=== PATIENT | female | born 1955 | race Caucasian/White ===

== ENCOUNTER 2024-10-19 14:28 | Outpatient (CLI) | payer MEDICARE, SELFPAY ==
[2024-10-19 15:00] LABS: Hematocrit 40.5 % (37.0-47.0); Hemoglobin 13.6 g/dL (12.0-15.0)
--- OUTSIDE RECORDS SUMMARY | 2024-10-19 17:03 | XMS_ITS | Encounter Summary ---
Author Organization [facility] Address [facility] [place] [address] Care Team Providers Care Wood Milling Machine Tender Name Role Phone Millicent Obregon [facility] Primary Care Provider + Encounter Details Date Type Department Care Team (Latest Contact Info) Description 10/19/2024 Travel Social History Tobacco Use Types Packs/Day Years Used Date Smoking Tobacco: Never Smokeless Tobacco: Never Alcohol Use Standard Drinks/Week Comments Not Currently 5 (1 standard drink = 0.6 oz pur e alcohol) social PHQ-2 Answer Date Recorded Patient Health Questionnaire-2 Score 0 09/24/2024 Comments No Sex and Gender Information Value Date Recorded Sex Assigned at Female 09/24/2024 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 [address] [place] [address] Millicent Obregon, [facility] [address], [address] [place] [address] documented as of this encounter Visit Diagnoses Not on filedocumented in this encounter Additional Health Concerns Assessment Noted Time PHQ-9 Depression Total Score: 0 07/27/20 21 3:37 PM TRUCK DRIVER SALESPERSON documented as of this encounter Care Teams Wood Milling Machine Tender Relationship Specialty Start Date End Date Millicent Obregon, [facility]- [address], [address] [place] [address] PCP - General NURSE PRACTITIONER 04/14/19 documented as of this encounter
--- OUTSIDE RECORDS SUMMARY | 2024-10-19 17:03 | XMS_ITS | Encounter Summary ---
Author Organization [facility] Address [facility] [place] [address] Care Team Providers Care Supervisor Travel Trailer Name Role Phone Millicent Obregon [facility] Primary Care Provider + Encounter Details Date Type Department Care Team (Late Contact Info) Description 10/19/2024 9:40 AM RECYCLING OR RUBBISH COLLECTOR Hospital Encounter [facility] [address] [place] [address] [facility] [address], [address] [place] [address] Arrived Social History Tobacco Use Types Packs/Day Years Used Date Smoking Tobacco: Never Smokeless Tobacco: Never Alcohol Use Standard Drinks/Week Comments Not Currently 5 (1 standard drink = 0.6 oz pur e alcohol) social PHQ-2 Answer Date Recorded Patient Health Questionnaire-2 Score 0 09/24/2024 Comments No Sex and Gender Information Value Date Recorded Sex Assigned at Female 09/24/2024 11:23 AM RECYCLING OR RUBBISH COLLECTOR Legal Sex Female 2:33 PM CDT Gender Identity Not on file Sexual Orientation Not on file documented as of this encounter Plan of Treatment Upcoming Encounters Date Type Department Care Team (Late Contact Info) Description 11/03/2024 10:00 AM CDT Office Visit [facility] [address] [place] [id number] Mindi Millicent Méndez, [facility] [address], [address] [place] [address] documented as of this encounter Procedures Procedure Name Priority Date/Time Associated Diagnosis Comments COMPREHENSIVE METABOLIC PANEL Routine 10/19/2024 9:40 AM RECYCLING OR RUBBISH COLLECTOR Mixed hyperlipidemia LIPID PANEL Routine 10/19/2024 9:40 AM RECYCLING OR RUBBISH COLLECTOR Mixed hyperlipidemia documented in this encounter Results * LIPID PANEL (10/19/2024 9:40 AM RECYCLING OR RUBBISH COLLECTOR) CHOLESTEROL 118 <200 MG/DL 10/19/2024 11:30 AM [facility] TRIGLYCERIDES 36 <150 MG/DL 10/19/2024 11:30 AM [facility] HDL 52 >40.0 MG/DL 10/19/2024 11:30 AM [facility] LDL (CALCULATED) 59 <100 MG/DL 10/19/19 11:30 AM [facility] NON HDL CHOLESTEROL 66 <130 MG/DL 10/19 11:30 AM [facility] Comment: NOTE: WHEN THE TRIGLYCERIDES ARE >200 mg/dL, NON HDL C IS A SECONDARY TARGET OF THERAPY, WITH A GOAL 30 mg/dL HIGHER THAN THE IDENTIFIED LDL C GOAL. CHOL/HDL RATIO 2.3 0.0 - 4.5 10/19/2024 11:30 AM [facility] VLDL CALCULATION 7 5 - 55 MG/DL 10/19/2024 11:30 AM [facility] LIPID INTERPRETATION 10/19/2024 11:30 AM [facility] Comment: [facility] CONCENSUS REPORT RECOMMENDATIONS: ADULT CHILD LOW RISK: CHOLESTEROL <200 <170 TRIGLYCERIDE <150 --- HDL >=60 --- LDL <100 <110 BORDERLINE: CHOLESTEROL 200-239 170-199 TRIGLYCERIDE 150-199 --- HDL 40-59 --- LDL 100-159 110-129 HIGH RISK: CHOLESTEROL >=240 >=200 TRIGLYCERIDE >=200 --- HDL <40 --- LDL >=160 >=130 10/19/2024 9:40 AM RECYCLING OR RUBBISH COLLECTOR Millicent Méndez Mindi [facility] Final Re sult [facility] [address] [place] [address], [place] [phone] * (ABNORMAL) COMPREHENSIVE METABOLIC PANEL (10/19/2024 9:40 AM RECYCLING OR RUBBISH COLLECTOR) GLUCOSE 95 70 - 99 MG/DL 10/19/2024 11:30 AM [facility] BUN 19(H) 7 - 18 MG/DL 10/19/2024 11:30 AM [facility] CREATININE S/P/B 0.80 0.55 - 1.02 MG/DL 10/19/2024 11:30 AM [facility] SODIUM S/P/B 141 136 - 145 MMOL/L 10/19/2024 11:30 AM [facility] POTASSIUM S/P/B 4.1 3.5 - 5.1 MMOL/L 10/19/2024 11:30 AM [facility] CHLORIDE S/P/B 105 100 - 108 MMOL/L 10/19/2024 11:30 AM [facility] CO2 26.3 21 - 32 MMOL/L 10/19/2024 11:30 AM [facility] CALCIUM S/P/B 9.1 8.5 - 10.1 MG/DL 10/19/2024 11:30 AM [facility] BILIRUBIN TOTAL S/P/B 0.9 0.2 - 1.2 MG/DL 10/19/2024 11:30 AM [facility] Comment: THIS ASSAY IS NOT RECOMMENDED FOR PATIENTS UNDERGOING TREATMENT WITH ELTROMBOPAG DUE TO THE POTENTIAL FOR FALSELY ELEVATED RESULTS. TOTAL PROTEIN S/P/B 7.2 6.4 - 8.2 G/DL 10/19/2024 11:30 AM [facility] ALBUMIN S/P/B 3.6 3.4 - 5.0 G/DL 10/19/2024 11:30 AM [facility] AST 19 15 - 37 U/L 10/19/2024 11:30 AM [facility] ALT 26 14 - 55 U/L 10/19/2024 11:30 AM [facility] ALKALINE PHOSPHATASE S/P/B 76 50 - 136 U/L 10/19/2024 11:30 AM [facility] ANION GAP 9.7 5 - 15 MMOL/L 10/19/2024 11:30 AM [facility] BUN CREATININE RATIO 23.8 6 - 26 10/19/2024 11:30 AM [facility] A/G RATIO 1.0 1.0 - 2.0 RATIO 10/19/2024 11:30 AM [facility] GFR ESTIMATE 80(L) >90 ML/MIN/1.7 3 M2 10/19/2024 11:30 AM [facility] Comment: NOTE: eGFR is not calculated for patients <18 years of age. This is an estimated GFR calculation using the new CKD EPI creatinine equation without race and so does not require a correction factor for race. This estimated GFR should not be used for calculating drug doses. 10/19/2024 9:40 AM RECYCLING OR RUBBISH COLLECTOR us Millicent Obregon [facility] Final Re sult [facility] [address] [place] [address], documented in this encounter Visit Diagnoses Diagnosis Mixed hyperlipidemia documented in this encounter Additional Health Concerns Assessment Noted Time PHQ-9 Depression Total Score: 0 07/27/20 21 3:37 PM RECYCLING OR RUBBISH COLLECTOR documented as of this encounter Care Teams Supervisor Travel Trailer Relationship Specialty Start Date End Date Millicent Obregon, [facility] [address], [address] [place] [address] PCP - General NURSE PRACTITIONER 04/14/19 documented as of this encounter
--- OUTSIDE RECORDS SUMMARY | 2024-10-19 17:03 | XMS_ITS | Clinical Summary ---
Author Organization [facility] Address [address] [place] [address] Care Team Providers Care Sky Line Yarder Name Role Phone MindiMillicent hernández Honey [facility] Primary Care Provider + Allergies Active Allergy Reactions Criticality Noted Date Comments Sulfa Antibiotics Itching 04/14/2019 Medications [facility]-3 Fatty Acids (OMEGA-3 PLUS) 1000 MG Cap Take by mouth daily. Active Multiple Vitamins-Minerals (MULTIVITAMIN ADULT OR) Take by mouth daily. Active Multiple Vitamins-Minerals (VISION VITAMINS OR) Take by mouth daily. Active cetirizine 10 MG tabletIndications :Allergic rhinitis due to pollen, unspecified seasonality Take 0.5 tablets (5 mg total) by mouth daily as needed. 45 tablet 1 10/16/19 22 Active Cholecalciferol (VITAMIN D) 125 MCG (5000 UT) Cap 11/25/19 24 Active lisinopril (PRINIVIL) 30 MG tabletIndications :Essential hypertension Take 1 tablet (30 mg total) by mouth daily. 90 tablet 1 05/08/20 24 Active levothyroxine (SYNTHROID) 50 MCG tabletIndications :Hypothyroidism, unspecified type Take 1 tablet (50 mcg total) by mouth daily. 90 tablet 2 05/08/20 24 Active atorvastatin (LIPITOR) 20 MG tabletIndications :Mixed hyperlipidemia Take 1 tablet (20 mg total) by mouth nightly at bedtime. 90 tablet 1 05/08/20 24 Active triamcinolone (KENALOG) 0.1 % creamIndications: Cheilitis Apply topically 2 (two) times daily. 80 g 05/08/20 24 Active meloxicam (MOBIC) 15 MG tabletIndications :Chronic pain of right knee TAKE 1 TABLET (15 MG TOTAL) BY MOUTH DAILY. 90 tablet 1 10/05/19 25 Active meloxicam (MOBIC) 15 MG tabletIndications :Chronic pain of right knee Take 1 tablet (15 mg total) by mouth daily. 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 The only thing proven to slow the progression of osteoarthritis is weight loss. Every pound lost relieves 4 to 6 pounds of stress across the knee. We discussed unloading braces. We discussed TENS units. Nonsteroidal anti-inflammatories as well as Tylenol and pain medication and their side effects. We discussed steroid versus Visco supplement injection. Dr Agustin discussed eventual total knee arthroplasty. She will increase meloxicam to 15 mg qd, order was sent in to the pharmacy. We will pre approve for synvisc. She will continue the home exercise program. Will consider steroid injection. Degenerative tear of meniscus, right 02/10/2021 Chronic pain of right knee 11/15/2020 Encounters Date Type Department Care Team Description 10/19/2024 9:40 AM [facility] Hospital Encounter [facility] Laboratory [address] [place] [address] Millicent Obregon FNP-BC Arrived 10/19/2024 Travel 10/06/2024 Scan [facility] Scanned, [facility] 10/05/[address] [phone] Millicent Obregon FNP-BC Information 09/28/2024 Telephone [facility] [address] [place] [phone] Millicent Obregon, [facility] Results 09/24/2024 3:59 PM [facility] - 09/24/2024 11:59 PM [facility] Hospital Encounter [address] [address] Millicent Obregon, [facility] Discharge Disposition: Home or Self Care (Routine Discharge) 09/24/2024 12:24 PM [facility] - 09/24/2024 3:58 PM [facility] Hospital Encounter [facility] Ultrasound [address] [place] [phone] Millicent Obregon, [facility]BC Discharge Disposition: Home or Self Care (Routine Discharge) 09/24/2024 11:40 AM [facility] Office Visit [address] [phone] Millicent Obregon, [facility] UTI (Possibly came back ) 09/24/[address] [address] Millicent Obregon FNP-BC Results 09/24/2024 Travel 09/10/[address] [address] Millicent Obregon, [facility] Results 09/07/2024 10:47 AM [facility] - 09/07/2024 11:59 PM [facility] Hospital Encounter [address] [address] Millicent Obregon, [facility] Discharge Disposition: Home or Self Care (Routine Discharge) 09/07/2024 9:40 AM [facility] Office Visit [address] [phone] Millicent Obregon, [facility] Bladder Problem (Leakage ) 09/07/2024 Travel 08/06/2024 11:07 AM [facility] - 08/06/2024 11:59 PM [facility] Hospital Encounter [facility] Mammography [address] [place] [address] Millicent Obregon FNP- Discharge Disposition: Home or Self Care (Routine Discharge) 08/06/2024 Telephone [facility] [address] [place] [address] Millicent Obregon FNP-HOWIE Results 08/06/2024 Travel from Last 3 Months Immunizations Name Administration Dates Next Due Afluria 36 MONTHS+ (Prefilled Syringe IIV4) 05/27 Arexvy Respiratory Syncytial Virus (RSV, adjuvanted) 0.5 mL, PF 09/22/2023 Fluzone 6 Months+ Quad (0.5 mL Prefilled Syringe) 05/19/2020 Fluzone High Dose (IIV, trivalent, 0.5mL) 2023 Fluzone High Dose - >Age 65 (Prefilled Syringe) 05/17/2023,05/27/2022,05/11/2021 Hepatitis B 10/20/2001,05/22/2001,04/10/2001 MODERNA COVID-19 BIVALENT (1 2+), MRNA, LNP-S, PF 01/28/2023,05/26/2022 MODERNA COVID-19 (12+) MRNA, LNP-S, PF, 100 MCG/ 0.5 ML DOSE 06/19/2021,11/07/2020,10/07/2020 MODERNA COVID-19 (USED CAR [employer]), MRNA, LNP-S, PF, 50 MCG/ 0.25 ML DOSE 12/23/2021 Pneumococcal (Pneumovax 23) 04/09/2022 Pneumococcal (Prevnar 13) 04/05/2021 Shingrix 12/10/2022,09/15/2022 Family History Medical History Relation Comments Diabetes Father Emphysema Father Breast Cancer Mother Cancer Mother breast Diabetes Mother Heart Attack Mother Thyroid Mother Diabetes Sister Relation Status Comments Father Mother Sister Social History Tobacco Use Types Packs/Day Years Used Date Smoking Tobacco: Never Smokeless Tobacco: Never Tobacco Cessation:Counseling Given: No Alcohol Use Standard Drinks/Week Comments Not Currently 5 (1 standard drink = 0.6 oz pur e alcohol) social PHQ-2 Answer Date Recorded Patient Health Questionnaire-2 Score 0 09/24/2024 Comments No Sex and Gender Information Value Date Recorded Sex Assigned at Female 09/24/2024 11:23 AM [facility] Legal Sex Female 2:33 PM CDT Gender Identity Not on file Sexual Orientation Not on file Last Filed Vital Signs Vital Sign Reading Time Taken Comments Blood Pressure 143/87 09/24/2024 11:55 AM [facility] Pulse 63 09/24/2024 11:32 AM [facility] Temperature 36.6 C (97.8 F) 09/24/2024 11:32 AM [facility] Respiratory Rate 18 09/24/2024 11:32 AM [facility] Oxygen Saturation 96% 09/24/2024 11:32 AM [facility] Inhaled Oxygen Concentration - - Weight 70.5 kg (155 lb 6.4 oz) 09/24/2024 11:32 AM [facility] Height 160 cm (5' 3 ) 09/24/2024 11:32 AM [facility] Body Mass Index 27.53 09/24/2024 11:32 AM [facility] Plan of Treatment Upcoming Encounters Date Type Department Care Team (Late st Contact Info) Description 11/03/2024 10:00 AM CDT Office Visit [facility] [address] [place] [phone] Millicent Obregon, [facility] [address] [facility], [address] [place] [address] Health Maintenance Due Date Last Done Comments DTaP, Tdap and Td Vaccines (1 - Tdap) 1974 Annual Medicare Wellness Visit 2020 Mammogram Screening 08/06/2026 08/06/2024, 08/05/2023, 08/02/2022, Additional history exists Colorectal Cancer Screening Colonoscopy (10 Years) 08/07/2031 08/07/2021, 08/07/2021 Colorectal Cancer Screening FIT-DNA (3 Years) Discontinued 06/13/2021, 06/13/2021 Pneumococcal Vaccine: 65+ Years Completed 04/09/2022, 04/05/2021 Zoster Vaccines Completed 12/10/2022, 09/15/2022 Hepatitis C Completed 02/28/2023 Dexa Scan (General) Completed 08/05/2023 RSV Immunization or 60+ Years Completed 09/22/2023 Influenza Adult Completed 07/03/2024, 04/27, 05/27/2022, Additional history exists PHQ-2 (Physician [place]) Completed 09/24/2024 COVID-19 Vaccine Completed 10/06/2024, 03/2024, 06/01/2023, Additional history exists Meningococcal B Vaccine Aged Out No l onger eligible based on patient's age to complete this topic Meningococcal Vaccine Aged Out No kemi eli eligible based on patient's age to complete this topic RSV Immunizations Under 20 Months Aged Out No longer eligible based on patient's age to complete this topic Procedures Procedure Name Priority Date/Time Associated Diagnosis Comments LIPID PANEL Routine 10/19/2024 9:40 AM [facility] Mixed hyperlipidemia COMPREHENSIVE METABOLIC PANEL Routine 10/19/2024 9:40 AM [facility] Mixed hyperlipidemia US PELVIC NON OB COMP TA+TV STAT 09/24/2024 1:30 PM [facility] Pelvic pain URINE BACTERIA CULTURE Routine 09/24/2024 11:42 AM [facility] Dysuria URINALYSIS AUTO DIP Routine 09/24/2024 Dysuria URINE BACTERIA CULTURE Routine 09/07/2024 10:09 AM [facility] Urine frequency URINALYSIS AUTO DIP Routine 09/07/2024 Other urinary incontinence MG SCREENING W KEE YAZMIN DIGI Routine 08/06/2024 11:47 AM [facility] Encounter for screening mammogram for malignant neoplasm of breast BONE DENSITY/DEXA Routine 08/05/2023 8:3 9 AM [facility] Asymptomatic menopause HEPATITIS C ANTIBODY Routine 02/28/2023 12:00 AM CDT Encounter for hepatitis C screening test for low risk patient COLONOSCOPY Routine 08/07/2021 9:26 AM [facility] COLOGUARD (EXACT SCIENCE) Routine 06/13/2021 9:30 PM CDT Colon cancer screening from Last 3 Months or Most Recently Relevant to Health Maintenance Results * (ABNORMAL) COMPREHENSIVE METABOLIC PANEL (10/19/2024 9:40 AM [facility]) [facility] GLUCOSE 95 70 - 99 MG/DL 10/19/2024 11:30 AM [facility] BUN 19(H) 7 - 18 MG/DL 10/19/2024 11:30 AM [facility] CREATININE S/P/B 0.80 0.55 - 1.02 MG/DL 10/19/2024 11:30 AM [facility] SODIUM S/P/B 141 136 - 145 MMOL/L 10/19/2024 11:30 AM [facility] POTASSIUM S/P/B 4.1 3.5 - 5.1 MMOL/L 10/19/2024 11:30 AM [facility] CHLORIDE S/P/B 105 100 - 108 MMOL/L 10/19/2024 11:30 AM [facility] CO2 26.3 21 - 32 MMOL/L 10/19/2024 11:30 AM [facility] CALCIUM S/P/B 9.1 8.5 - 10.1 MG/DL 10/19/2024 11:30 AM [facility] BILIRUBIN TOTAL S/P/B 0.9 0.2 - 1.2 MG/DL 10/19/2024 11:30 AM [facility] Comment: THIS ASSAY IS NOT RECOMMENDED FOR PATIENTS UNDERGOING TREATMENT WITH ELTROMBOPAG DUE TO THE POTENTIAL FOR FALSELY ELEVATED RESULTS. TOTAL PROTEIN S/P/B 7.2 6.4 - 8.2 G/DL 10/19/2024 11:30 AM [facility] ALBUMIN S/P/B 3.6 3.4 - 5.0 G/DL 10/19/2024 11:30 AM [facility] AST 19 15 - 37 U/L 10/19/2024 11:30 AM [facility] ALT 26 14 - 55 U/L 10/19/2024 11:30 AM [facility] ALKALINE PHOSPHATASE S/P/B 76 50 - 136 U/L 10/19/2024 11:30 AM [facility] ANION GAP 9.7 5 - 15 MMOL/L 10/19/2024 11:30 AM [facility] BUN CREATININE RATIO 23.8 6 - 26 10/19/2024 11:30 AM [facility] A/G RATIO 1.0 1.0 - 2.0 RATIO 10/19/2024 11:30 AM [facility] GFR ESTIMATE 80(L) >90 ML/MIN/1.7 3 M2 10/19/2024 11:30 AM [facility] Comment: NOTE: eGFR is not calculated for patients <18 years of age. This is an estimated GFR calculation using the new CKD EPI creatinine equation without race and so does not require a correction factor for race. This estimated GFR should not be used for calculating drug doses. 10/19/2024 9:40 AM [facility] Millicent Obregon [facility] Final Re sult [facility] [address] [place] [address], [place] [phone] * LIPID PANEL (10/19/2024 9:40 AM [facility]) CHOLESTEROL 118 <200 MG/DL 10/19/2024 11:30 AM [facility] TRIGLYCERIDES 36 <150 MG/DL 10/19/2024 11:30 AM [facility] HDL 52 >40.0 MG/DL 10/19/2024 11:30 AM [facility] LDL (CALCULATED) 59 <100 MG/DL 10/19/19 11:30 AM [facility] NON HDL CHOLESTEROL 66 <130 MG/DL 10/19 11:30 AM [facility] Comment: NOTE: WHEN THE TRIGLYCERIDES ARE >200 mg/dL, NON HDL C IS A SECONDARY TARGET OF THERAPY, WITH A GOAL 30 mg/dL HIGHER THAN THE IDENTIFIED LDL C GOAL. CHOL/HDL RATIO 2.3 0.0 - 4.5 10/19/2024 11:30 AM [facility] VLDL CALCULATION 7 5 - 55 MG/DL 10/19/2024 11:30 AM [facility] LIPID INTERPRETATION 10/19/2024 11:30 AM [facility] Comment: NIH CONCENSUS REPORT RECOMMENDATIONS: ADULT CHILD LOW RISK: CHOLESTEROL <200 <170 TRIGLYCERIDE <150 --- HDL >=60 --- LDL <100 <110 BORDERLINE: CHOLESTEROL 200-239 170-199 TRIGLYCERIDE 150-199 --- HDL 40-59 --- LDL 100-159 110-129 HIGH RISK: CHOLESTEROL >=240 >=200 TRIGLYCERIDE >=200 --- HDL <40 --- LDL >=160 >=130 10/19/2024 9:40 AM [facility] us Millicent Obregon [facility] Final Re sult [facility] [address] [place] [address], [place] [phone] * US PELVIC NON OB COMP TA+TV (09/24/2024 1:30 PM [facility]) Anatomical Region Laterality Modality Pelvis Ultrasound 09/24/2024 1:41 PM [facility] Impressions 09/24/2024 1:48 PM [facility] IMPRESSION: 1. Nonvisualized ovaries. 2. Fluid in the uterine cavity and cervical canal. This would not be typical in a patient of this age. Recommend gynecology referral for additional endometrial evaluation as it is not seen well enough to comment on today. Referred By: MILLICENT OBREGON Interpreted By: Bishop Pope MD, 09/24/2024 1:41 PM Narrative 09/24/2024 1:48 PM [place] [place] [address] EXAM: US PELVIC NON OB COMP TA+TV DATE: 09/24/2024 COMPARISON: None INDICATION: Pelvic pain since Saturday TECHNIQUE: Grayscale, color Doppler, and spectral waveform analysis performed. Transabdominal and transvaginal scanning. FINDINGS: Grayscale, color Doppler, and spectral waveform analysis performed. The uterus measures 6 cm long, 4 cm transverse, 2.5 cm AP. The ovaries are not visualized secondary to bowel gas. There is a moderate amount of hypoechoic fluid within the cervix. This could be correlated with any vaginal discharge. Uterus is retroverted and not optimally visualized. There is a small amount of fluid in the fundal aspect of the uterine cavity. A short length of endometrium is visualized and is grossly normal in thickness. There is a focal hyperechoic finding in the myometrium measuring about 1 cm. Probable partially visualized fibroid. Procedure Note Bishop Pope MD - 09/24/[address] [address] EXAM: US PELVIC NON OB COMP TA+TV DATE: 09/24/2024 COMPARISON: None INDICATION: Pelvic pain since Saturday TECHNIQUE: Grayscale, color Doppler, and spectral waveform analysisperformed. Transabdominal and transvaginal scanning. FINDINGS: Grayscale, color Doppler, and spectral waveform analysisperformed. The uterus measures 6 cm long, 4 cm transverse, 2.5 cm AP. The ovariesare not visualized secondary to bowel gas. There is a moderate amount of hypoechoic fluid within the cervix. Thiscould be correlated with any vaginal discharge. Uterus is retroverted andnot optimally visualized. There is a small amount of fluid in the fundalaspect of the uterine cavity. A short length of endometrium is visualizedand is grossly normal in thickness. There is a focal hyperechoic findingin the myometrium measuring about 1 cm. Probable partially visualizedfibroid. IMPRESSION: 1. Nonvisualized ovaries. 2. Fluid in the uterine cavity and cervical canal. This would not betypical in a patient of this age. Recommend gynecology referral foradditional endometrial evaluation as it is not seen well enough to commenton today. Referred By: MILLICENT OBREGON Interpreted By: Bishop Pope MD, 09/24/2024 1:41 PM Millicent Obregon [facility] Final Re sult * (ABNORMAL) URINE BACTERIA CULTURE (09/24/2024 11:42 AM [facility]) Only the most recent of2 resultswithin the time period is included. SPEC DESCRIPTION URINE CLEAN CATCH 09/24/2024 4:00 PM [facility] SPECIAL REQUESTS NO SPECIAL REQUEST 09/24/2024 4:00 PM [facility] CULTURE RESULT 50,000-100,000 COL/ML STREPTOCOCCI, BETA HEMOLYTIC GROUP A SUSCEPTIBILTY NOT ROUTINELY PERFORMED. SAVING ISOLATE FOR 5 DAYS. CONTACT MICROBIOLOGY DEPARTMENT IF FURTHER WORKUP IS INDICATED. (A) 09/26/2024 11:32 AM [facility] URINE SPECIMEN OBTAINED BY CLEAN CATCH PROCEDURE / Unknown 09/24/2024 11:42 AM [facility] 09/24/2024 4:04 PM [facility] Millicent Obregon [facility] MICROBIOLOGY - GENERAL O RDERABLES Final Result [facility] [address] [place] [address], [place] [phone] [facility] () [facility] [address] [place] [address], [place] [phone] * (ABNORMAL) URINALYSIS AUTO DIP (09/24/2024) Only the most recent of2 resultswithin the time period is included. COLOR (U) YELLOW YELLOW [facility] (9401), CURT TRANSPARENCY CLEAR CLEAR MG-[facility] (9401), CURT GLUCOSE (U) NEGATIVE NEGATIVE MG/DL MG-[facility] (9401), CURT BILIRUBIN (U) NEGATIVE NEGATIVE MG-HOL Y CROSS LJ (9401), CURT KETONES MG/DL (U) NEGATIVE NEGATIVE MG/DL MG-[facility] (9401), CURT SPECIFIC GRAVITY (U) 1.010 1.001 - 1.035 MG-[facility] (9401), CURT BLOOD (U) SMALL (1+, Hemolyzed)(A ) NEGATIVE MG-[facility] (9401), CURT U PH 6.0 5.0 - 9.0 MG-[facility] (9401), CURT PROTEIN (U) NEGATIVE NEGATIVE mg/dL MG-[facility] (9401), CURT UROBILINOGEN 0.2 0.2 - 1.0 EU/dL = mg/dL MG-[facility] (9401), CURT NITRITES NEGATIVE NEGATIVE MG/DL MG-[facility] (9401), CURT LEUKOCYTES (U) 1+ (SMALL)(A) NEGATIVE MG-[facility] (9401), CURT URINE SPECIMEN OBTAINED BY CLEAN CATCH PROCEDURE / Unknown 09/24/2024 us Millicent Obregon [facility] URINE ORDERABLES Final R esult [facility] (9401), [facility]T [address] [place] [address], [place] [phone] * MG SCREENING W KEE YAZMIN DIGI (08/06/2024 11:47 AM [facility]) Anatomical Region Laterality Modality Breast Bilateral Mammography 08/06/2024 1:12 PM [facility] Impressions 08/06/2024 1:24 PM [facility] IMPRESSION: No suspicious mammographic findings. Recommendation: 1. Routine Screening, Bilateral Assessment: ACR BI-RADS 1 - NEGATIVE Ordered By: MILLICENT OBREGON Interpreted By: Facundo Mcdermott MD, 08/06/2024 1:12 PM Narrative 08/06/2024 1:24 PM [facility] [address] [address] Examination: Screening bilateral mammogram Exam Date: 08/06/2024 11:12 AM Clinical history: Routine screening. Family history of breast cancer in her mother. Comparison: 08/05/2023, 08/02/2022 Technique: Digital screening mammography of both breasts was performed. Breast tomosynthesis acquisitions were obtained and reviewed. This study was read with the assistance of a computer-aided detection system. Tissue density: There are scattered areas of fibroglandular density. Findings: No suspicious masses, malignant appearing calcifications, skin thickening or other abnormalities are present. No significant change from the prior exam. Millicent Obregon [facility] Final Re sult * BONE DENSITY/DEXA (08/05/2023 8:39 AM [facility]) Anatomical Region Laterality Modality Bone Mammography 08/05/2023 8:58 AM [facility] Impressions 08/05/2023 9:01 AM [facility] IMPRESSION:===== The patient bone mineral density is osteopenic according to the World Health Organization (WHO) criteria. Referred By: MILLICENT OBREGON Interpreted By: Jonathon Dinh MD, 08/05/2023 8:58 AM Narrative 08/05/2023 9:01 AM [facility] EXAMINATION: Bone Density Axial EXAM DATE/TIME: 08/05/2023 8:01 AM REASON FOR EXAM: Postmenopausal status COMPARISON: None FINDINGS: DEXA bone densitometry The bone mineral density (BMD) was determined by dual-energy x-ray absorptiometry, the results are as follows: AP Lumbar Spine L1 through L4 BMD Patient (GM/SQCM): 1.059 T-Score (Standard deviations from young adult peak bone density): 0.1 and a Z- Score of 2.1. Scoliosis and osteoarthritis may falsely increase bone mineral density measured in the lumbar spine. Right femoral neck: BMD Patient (GM/SQCM): 0.679 T-Score (Standard deviations from young adult peak bone density): -1.5 and a Z- Score of 0.2. Total right hip: BMD Patient (GM/SQCM): 0.882 T-Score (Standard deviations from young adult peak bone density): -0.5 and a Z- Score of 0.9. 10 year fracture risk using FRAX, fracture risk assessment tool: Major osteoporotic fracture: 9.7 % Hip fracture: 1.2 % ===== Procedure Note Jonathon Dinh MD - 08/05/2023 EXAMINATION: Bone Density Axial EXAM DATE/TIME: 08/05/2023 8:01 AM REASON FOR EXAM: Postmenopausal status COMPARISON: None FINDINGS: DEXA bone densitometry The bone mineral density (BMD) was determined bydual-energy x-ray absorptiometry, the results are as follows: AP Lumbar Spine L1 through L4 BMD Patient (GM/SQCM): 1.059 T-Score (Standard deviations from young adult peak bonedensity): 0.1 and a Z- Score of 2.1. Scoliosis and osteoarthritis mayfalsely increase bone mineral density measured in the lumbar spine. Right femoral neck: BMD Patient (GM/SQCM): 0.679 T-Score (Standard deviations from young adult peak bonedensity): -1.5 and a Z- Score of 0.2. Total right hip: BMD Patient (GM/SQCM): 0.882 T-Score (Standard deviations from young adult peak bonedensity): -0.5 and a Z- Score of 0.9. 10 year fracture risk using FRAX, fracture risk assessment tool: Major osteoporotic fracture: 9.7 % Hip fracture: 1.2 % ===== IMPRESSION:===== The patient bone mineral density is osteopenic according to the WorldHealth Organization (WHO) criteria. Referred By: MILLICENT OBREGON Interpreted By: Jonathon Dinh MD, 08/05/2023 8:58 AM Millicent Obregon [facility] DEXA Final Re sult * HEPATITIS C ANTIBODY (02/28/2023 12:00 AM CDT) 02/28/2023 Millicent Obregon [facility] Final Re sult [facility] * (ABNORMAL) COLOGUARD ([employer]) (06/13/2021 9:30 PM CDT) COLOGUARD RESULT Positive( A) Negative [employer] (CLIA #:[id number]) Comment: POSITIVE TEST RESULT. A positive Cologuard result should be followed with a colonoscopy or visual examination of the colon. The normal value (reference range) for this assay is negative. TEST DESCRIPTION: Composite algorithmic analysis of stool DNA-biomarkers with hemoglobin immunoassay. Quantitative values of individual biomarkers are not reportable and are not associated with individual biomarker result reference ranges. Cologuard is intended for colorectal cancer screening of adults of either sex, 45 years or older, who are at average-risk for colorectal cancer (CRC). Cologuard has been approved for use by the U.S. FDA. The performance of Cologuard was established in a cross sectional study of average-risk adults aged 50-84. Cologuard performance in patients ages 45 to 49 years was estimated by sub-group analysis of near-age groups. Colonoscopies performed for a positive result may find as the most clinically significant lesion: colorectal cancer [4.0%], advanced adenoma (including sessile serrated polyps greater than or equal to 1cm diameter) [20%] or non- advanced adenoma [31%]; or no colorectal neoplasia [45%]. These estimates are derived from a prospective cross-sectional screening study of 10,000 individuals at average risk for colorectal cancer who were screened with both Cologuard and colonoscopy. (Geneva Garcia al, N Engl J Med 2014;370(14):9858-9758.) Cologuard may produce a false negative or false positive result (no colorectal cancer or precancerous polyp present at colonoscopy follow up). A negative Cologuard test result does not guarantee the absence of CRC or advanced adenoma (pre-cancer). The current Cologuard screening interval is every 3 years. ([employer] Cancer Society and U.S. Multi-Society Task Force). Cologuard performance data in a 10,000 patient pivotal study using colonoscopy as the reference method can be accessed at the following location: [email or web address]/results. Additional description of the Cologuard test process, warnings and precautions can be found at www.cologuard.com. Stool specimen (specimen) STOOL SPECIMEN / Unknown 06/13/2021 9:30 PM CDT 06/15/2021 9:32 PM CDT Millicent Obregon BULK FILLER-BC BODY FLUIDS AND STOOLS O RDERABLES Final Result [facility] ([facility]) [address] [place] [address], [employer] (CLIA #:[id number]) [address] [place] [address] from Last 3 Months or Most Recently Relevant to Health Maintenance Insurance MEDICARE GENERIC - COMMERCIAL Care Teams Sky Line Yarder Relationship Specialty Start Date End Date Millicent Obregon, BULK FILLER-BC [address] [facility], [address] [place] [address] PCP - General NURSE PRACTITIONER 04/14/19
== END 2024-10-19 14:29 | disposition home or self-care (01) ==
PROVIDERS: Visit Provider Obstetrics & Gynecology
DX: N95.0 Postmenopausal bleeding (principal)
CPT/HCPCS: 36415; 85014; 85018

== ENCOUNTER 2024-11-06 00:51 | Day surgery (SDC) | payer MEDICARE, SELFPAY ==
[2024-10-15 15:40] VITALS: BMI 25.7
--- NOTE | 2024-10-15 15:55 | PC.NURSE ---
Report to the Outpatient Waiting Room, entrance under the green pavilion located off [facility], at time ___6:30AM____ on date ___11/05/24____. Planned Procedure Time: ___8:30AM .? Time changes happen often and if your time is changed the preop area will call you the afternoon before. - You and your visitor will be asked to self-screen and do not enter if you have any COVID symptoms. Please call surgeon if you need to reschedule. - A mask is optional within the hospital at this time. Patients may have clear liquids (water, carbonated beverages, clear teas, apple juice) until 3 hours prior to surgery (5:30AM) with a maximum of 20 ounces. - No food from midnight until time of surgery and no smoking, or chewing tobacco (or any form of nicotine). No chewing gum, candy or mints. Take only the following medications with a SIP of water on the morning of surgery: ____LEVOTHYROXINE DO NOT STOP ANY OF YOUR OTHER PRESCRIPTION MEDICATIONS PRIOR TO SURGERY EXCEPT THE FOLLOWING Hold all vitamins and supplements for 3 days per anesthesiologist.- LAST DOSE 11/01/24. Please no make-up, nail portuguese, hairspray, perfume, deodorant, or body powder the day of surgery.? No jewelry (including any body piercings) or valuables the day of surgery, leave them at home.? Please take a shower or bath the night before, or the morning of, surgery with an antibacterial soap.? Wear comfortable, loose fitting clothing.? - Jewelry must be removed prior to entering the operating room.? Rings and piercings that are not removed may be cut off. - The hospital will not accept responsibility for valuables.? - Please leave all valuables, including medications, at home the day of surgery. If you are going home after surgery, a licensed driver merchandiser must drive you home.? - NO public transportation without another adult if you receive anesthesia. - We recommend that an adult stay with you for 24 hours following discharge. - We also recommend that you do not drive, make important decision, drink alcoholic beverages, or take any drugs that were not prescribed by your health care provider for at least 24 hours after your discharge time. Follow any additional instructions given to you from your surgeon. Telephone instructions given to ____PATIENT and asked if any additional questions and then verbalized understanding. Patient advised to call surgeon office or pre surgery nurse liaison [phone] if any additional questions.
--- NOTE | 2024-10-23 09:15 | PC.NURSE ---
Report to the Outpatient Waiting Room, entrance under the green pavilion located off [facility], at time ___11:30am____ on date ___11/06/24____. Planned Procedure Time: ___1:30pm .? Time changes happen often and if your time is changed the preop area will call you the afternoon before. - You and your visitor will be asked to self-screen and do not enter if you have any COVID symptoms. Please call surgeon if you need to reschedule. - A mask is optional within the hospital at this time. Patients may have clear liquids (water, carbonated beverages, clear teas, apple juice) until 3 hours prior to surgery (10:30am) with a maximum of 20 ounces. - No food from midnight until time of surgery and no smoking, or chewing tobacco (or any form of nicotine). No chewing gum, candy or mints. Take only the following medications with a SIP of water on the morning of surgery: ___levothyroxine DO NOT STOP ANY OF YOUR OTHER PRESCRIPTION MEDICATIONS PRIOR TO SURGERY EXCEPT THE FOLLOWING Hold all vitamins and supplements for 3 days per anesthesiologist.-last dose 11/02/24 Please no make-up, nail italian, hairspray, perfume, deodorant, or body powder the day of surgery.? No jewelry (including any body piercings) or valuables the day of surgery, leave them at home.? Please take a shower or bath the night before, or the morning of, surgery with an antibacterial soap.? Wear comfortable, loose fitting clothing.? Children are encouraged to wear pajamas. - Jewelry must be removed prior to entering the operating room.? Rings and piercings that are not removed may be cut off. - The hospital will not accept responsibility for valuables.? - Please leave all valuables, including medications, at home the day of surgery. If you are going home after surgery, a licensed mule driver must drive you home.? - NO public transportation without another adult if you receive anesthesia. - We recommend that an adult stay with you for 24 hours following discharge. - We also recommend that you do not drive, make important decision, drink alcoholic beverages, or take any drugs that were not prescribed by your health care provider for at least 24 hours after your discharge time. Follow any additional instructions given to you from your surgeon. Telephone instructions given to ____patient and asked if any additional questions and then verbalized understanding. Patient advised to call surgeon office or pre surgery nurse liaison [phone] if any additional questions.
--- NOTE | 2024-11-03 12:27 | PM.IMHP ---
H&P: HPI History of Present Illness Date/Time: 11/03/24 12:27 Chief Complaint: Postmenopausal bleeding Narrative: 69-year-old 2 para 2 who is admitted for hysteroscopy dilatation curettage secondary to fluid present in the uterus. Ultrasound shows fluid which should not be there. She had a normal Pap and then had some discomfort but that improved. In light of the fluid in the uterus she is admitted for hysteroscopy/dilatation curettage risks and benefits reviewed including but not exclusive of , aspiration pneumonia, bleeding, transfusion, perforation injury to bowel, bladder, ureters, or other internal organs with needle for open laparotomy. She received the ACOG handout entitled hysteroscopy as well as dilatation curettage. She had all questions answered. She asked to proceed Review of Systems Review of Systems: All systems reviewed & are unremarkable except as noted in HPI and below PMFSH Social History Social History Smoking status: Never smoker Alcohol intake: current Drinks per week: 1 Living arrangements: with family Additional [facility] comments[facility] Spiritual care concerns: No Meds Home Medications and Allergies Home Medications ?Medication ?Instructions ?Recorded ?Confirmed ?Type atorvastatin 20 mg tablet 20 mg PO HS 10/15/24 10/15/24 History calcium carb-ergocalciferol (vit 1 tablet PO DAILY 10/15/24 10/15/24 History D2) 600 mg calcium-200 unit tablet cholecalciferol (vitamin D3) 50 50 mcg PO DAILY 10/15/24 10/15/24 History mcg (2,000 unit) capsule levothyroxine 50 mcg tablet 50 mcg PO QAM 10/15/24 10/15/24 History lisinopril 30 mg tablet 30 mg PO QAM 10/15/24 10/15/24 History meloxicam 15 mg tablet 15 mg PO QAM 10/15/24 10/15/24 History multivitamin (Daily Multi-Vitamin 1 tablet PO DAILY 10/15/24 10/15/24 History tablet) omega-3 fatty acids-fish oil 360 1 cap PO DAILY 10/15/24 10/15/24 History mg-1,200 mg capsule vitamin A-vitamin C-vit E-min 1 tablet PO DAILY 10/15/24 10/15/24 History tablet (Ocutabs tablet) Allergies Allergy/AdvReac Type Severity Reaction Status Date / Time Sulfa (Sulfonamide AdvReac ITCHING Verified 10/23/24 09:12 Antibiotics) Exam Const: General: cooperative, healthy appearing and comfortable Nutritional Appearance: average body habitus Orientation/consciousness: oriented to person, oriented to place and oriented to time Resp: Effort & Inspection: normal respiratory effort Cardio: Rate: regular rate Rhythm: regular rhythm Heart sounds: S1 normal heart sound present and S2 normal heart sound present GI: Inspection: normal to inspection Percussion: Yes normal to percussion : External Female Exam: normal external appearance Speculum Exam - Vagina: normal appearance of the vagina Speculum Exam - Cervix: normal appearance of the cervix Bimanual exam- vagina & uterus: soft Bimanual Exam- Adnexa, other: normal adnexae Assessment and Plan Assessment and plan (1) Thickened endometrium: Code(s): R93.89 - Abnormal findings on diagnostic imaging of other specified body structures Status: Acute Plan Proceed with hysteroscopy/dilatation and curettage
--- OUTSIDE RECORDS SUMMARY | 2024-11-06 00:55 | XMS_ITS | Clinical Summary ---
Author Organization [facility] Address [address] [place] [address] Care Team Providers Care Computer Systems Integrator Name Role Phone MindiMillicent heránndez Honey [facility] Primary Care Provider + Allergies Active Allergy Reactions Criticality Noted Date Comments Sulfa Antibiotics Itching 04/14/2019 Medications Altheimer-3 Fatty Acids (OMEGA-3 PLUS) 1000 MG Cap [...] daily. 90 tablet 2 05/08/20 24 Active triamcinolone (KENALOG) 0.1 % creamIndications: Cheilitis Apply topically 2 (two) times daily. 80 g 05/08/20 24 Active meloxicam (MOBIC) 15 MG tabletIndications :Chronic pain of right knee TAKE 1 TABLET (15 MG TOTAL) BY MOUTH DAILY. 90 tablet 1 10/05/19 25 Active atorvastatin (LIPITOR) 20 MG tabletIndications :Mixed hyperlipidemia TAKE 1 TABLET BY MOUTH NIGHTLY AT BEDTIME 90 tablet 1 10/28/19 25 Active atorvastatin (LIPITOR) 20 MG tabletIndications :Mixed hyperlipidemia Take 1 tablet (20 mg total) by mouth nightly at bedtime. 90 tablet 1 05/08/20 24 025 Discontinued [...] Encounters Date Type Department Care Team Description 11/03/[address] [address] Millicent Rubio FNP-HOWIE Record Request 11/02/2024 2:00 PM CDT Office Visit [address] [place] [address] Millicent Rubio FNP-HOWIE Follow Up (6 months ) 11/02/2024 Travel 10/20/[address] [place] [address] Millicent Rubio FNP-HOWIE Lab Results 10/19/2024 9:40 AM BLENDING COORDINATOR - 10/19/2024 11:59 PM BLENDING COORDINATOR Hospital Encounter [facility] [address] [facility] [place] [address] Millicent Rubio, HIGHWAY CONSTRUCTION INSPECTOR-BC Discharge Disposition: Home or Self Care (Routine Discharge) 10/19/2024 Scan [facility] Scanned, [facility] (SCAN) 10/19/2024 Travel 10/06/2024 Scan [facility] Scanned, [facility] 10/05/2024 Scan [facility] Scanned, [facility] Pathology (SCAN) 10/05/[address] [place] [address] Millicent Rubio FNP-BC Information 09/28/[address] [place] [address] [address] HIG[address]AY CONSTRUCTION INSPECTOR-BC Results 09/24/2024 3:59 PM BLENDING COORDINATOR - 09/24/2024 11:59 PM BLENDING COORDINATOR Hospital Encounter [facility] [address] [place] [address] Millicent Rubio, HIGHWAY CONSTRUCTION INSPECTOR-BC Discharge Disposition: Home or Self Care (Routine Discharge) 09/24/2024 12:24 PM BLENDING COORDINATOR - 09/24/2024 3:58 PM BLENDING COORDINATOR Hospital Encounter [facility] Ultrasound [address] [place] [address] Millicent Rubio, HIGHWAY CONSTRUCTION INSPECTOR-BC Discharge Disposition: Home or Self Care (Routine Discharge) 09/24/2024 11:40 AM BLENDING COORDINATOR Office Visit [address] [place] [address] Millicent Rubio, HIGHWAY CONSTRUCTION INSPECTOR-BC UTI (Possibly came back ) 09/24/[address] [place] [address] MindiMillicent barba FNP-BC Results 09/24/2024 Travel 09/10/2024 Telephone [facility] [address] [place] [address] Millicent Rubio FNP-BC Results 09/07/2024 10:47 AM BLENDING COORDINATOR - 09/07/2024 11:59 PM BLENDING COORDINATOR Hospital Encounter [facility] [address] [place] [address] Millicent Rubio FNP-BC Discharge Disposition: Home or Self Care (Routine Discharge) 09/07/2024 9:40 AM BLENDING COORDINATOR Office Visit [facility] [address] [place] [address] Millicent Rubio FNP-BC Bladder Problem (Leakage ) 09/07/2024 Travel from Last 3 Months Immunizations Name [...] MCG/ 0.5 ML DOSE 06/19/2021,11/07/2020,10/07/2020 MODERNA COVID-19 (MILLING MACHINE TENDER [facility]SE [facility]), MRNA, LNP-S, PF, 50 MCG/ [...] Packs/Day Years Used Date Smoking Tobacco: Never Passive Smoke Exposure: Never Smokeless Tobacco: Never Alcohol Use Standard Drinks/Week Comments Yes 1.7 (1 standard drink = 0.6 oz p ure alcohol) social PHQ-2 Answer Date Recorded Patient Health Questionnaire-2 Score 0 11/02/2024 Comments No Sex and Gender Information Value Date Recorded Sex Assigned at Female 09/24/2024 11:23 AM BLENDING COORDINATOR Legal Sex Female 2:33 PM CDT Gender Identity Not on file Sexual Orientation Not on file Last Filed Vital Signs Vital Sign Reading Time Taken Comments Blood Pressure 138/80 11/02/2024 2:05 PM CDT Pulse 84 11/02/2024 2:03 PM CDT Temperature 36.6 C (97.8 F) 11/02/2024 2:03 PM CDT Respiratory Rate 18 11/02/2024 2:03 PM CDT Oxygen Saturation 99% 11/02/2024 2:03 PM CDT Inhaled Oxygen Concentration - - Weight 71.8 kg (158 lb 3.2 oz) 11/02/2024 2:03 P M CDT Height 160 cm (5' 3 ) 11/02/2024 2:03 PM CDT Body Mass Index 28.02 11/02/2024 2:03 PM CDT Plan of Treatment Health Maintenance Due Date Last Done Comments [...] Completed 07/03/2024, 04/27, 05/27/2022, Additional history exists COVID-19 Vaccine Completed 10/06/2024, 03/2024, 06/01/2023, Additional history exists PHQ-2 (Physician [place]) Completed 11/02/2024 Meningococcal B Vaccine Aged Out No l onger eligible based on patient's age to complete this topic Meningococcal Vaccine Aged Out No kemi veronique eligible based on patient's age to complete this topic RSV Immunizations Under 20 Months Aged Out No longer eligible based on patient's age to complete this topic Procedures Procedure Name Priority Date/Time Associated Diagnosis Comments LIPID PANEL Routine 10/19/2024 9:40 AM BLENDING COORDINATOR Mixed hyperlipidemia COMPREHENSIVE METABOLIC PANEL Routine 10/19/2024 9:40 AM BLENDING COORDINATOR Mixed hyperlipidemia OUTSIDE LAB (SCAN ORDER) 10/19/2024 OUTSIDE CYTOPATH CERV/VAG INTERPRET (PAP) (SCAN ORDER) 10/05/2024 US PELVIC NON OB COMP TA+TV STAT 09/24/2024 1:30 PM BLENDING COORDINATOR Pelvic pain URINE BACTERIA CULTURE Routine 09/24/2024 11:42 AM BLENDING COORDINATOR Dysuria URINALYSIS AUTO DIP Routine 09/24/2024 Dysuria URINE BACTERIA CULTURE Routine 09/07/2024 10:09 AM BLENDING COORDINATOR Urine frequency URINALYSIS AUTO DIP Routine 09/07/2024 Other urinary incontinence MG SCREENING W KEE YAZMIN DIGI Routine 08/06/2024 11:47 AM BLENDING COORDINATOR Encounter for screening mammogram for malignant neoplasm of breast BONE DENSITY/DEXA Routine 08/05/2023 8:3 9 AM BLENDING COORDINATOR Asymptomatic menopause HEPATITIS C ANTIBODY Routine 02/28/2023 12:00 AM CDT Encounter for hepatitis C screening test for low risk patient COLONOSCOPY Routine 08/07/2021 9:26 AM BLENDING COORDINATOR COLOGUARD (EXACT SCIENCE) Routine 06/13/2021 9:30 PM CDT Colon cancer screening from Last 3 Months or Most Recently Relevant to Health Maintenance Results * (ABNORMAL) COMPREHENSIVE METABOLIC PANEL (10/19/2024 9:40 AM [facility]) GLUCOSE 95 70 - 99 MG/DL 10/19/2024 11:30 AM [facility] BUN 19(H) 7 - 18 MG/DL 10/19/2024 11:30 AM [facility] CREATININE S/P/B 0.80 0.55 - 1.02 MG/DL 10/19/2024 11:30 AM [facility] SODIUM S/P/B 141 136 - 145 MMOL/L 10/19/2024 11:30 AM [facility] POTASSIUM S/P/B 4.1 3.5 - 5.1 MMOL/L 10/19/2024 11:30 AM [facility] CHLORIDE S/P/B 105 100 - 108 MMOL/L 10/19/2024 11:30 AM [facility] CO2 26.3 21 - 32 MMOL/L 10/19/2024 11:30 AM [facility] CALCIUM S/P/B 9.1 8.5 - 10.1 MG/DL 10/19/2024 11:30 AM [facility] BILIRUBIN TOTAL S/P/B 0.9 0.2 - 1.2 MG/DL 10/19/2024 11:30 AM [facility] Comment: THIS ASSAY IS NOT RECOMMENDED FOR PATIENTS UNDERGOING TREATMENT WITH ELTROMBOPAG DUE TO THE POTENTIAL FOR FALSELY ELEVATED RESULTS. TOTAL PROTEIN S/P/B 7.2 6.4 - 8.2 G/DL 10/19/2024 11:30 AM [facility] ALBUMIN S/P/B 3.6 3.4 - 5.0 G/DL 10/19/2024 11:30 AM [facility] AST 19 15 - 37 U/L 10/19/2024 11:30 AM [facility] ALT 26 14 - 55 U/L 10/19/2024 11:30 AM [facility] ALKALINE PHOSPHATASE S/P/B 76 50 - 136 U/L 10/19/2024 11:30 AM [facility] ANION GAP 9.7 5 - 15 MMOL/L 10/19/2024 11:30 AM [facility] BUN CREATININE RATIO 23.8 6 - 26 10/19/2024 11:30 AM [facility] A/G RATIO 1.0 1.0 - 2.0 RATIO 10/19/2024 11:30 AM [facility] GFR ESTIMATE 80(L) >90 ML/MIN/1.7 3 M2 10/19/2024 11:30 AM [facility] Comment: NOTE: eGFR is not calculated for patients <18 years of age. This is an estimated GFR calculation using the new CKD EPI creatinine equation without race and so does not require a correction factor for race. This estimated GFR should not be used for calculating drug doses. 10/19/2024 9:40 AM [facility] us Millicent Rubio [facility] Final Re sult [facility] [address] [place] [address], [place] [phone] * LIPID PANEL (10/19/2024 9:40 AM [facility]) CHOLESTEROL 118 <200 MG/DL 10/19/2024 11:30 AM [facility] TRIGLYCERIDES 36 <150 MG/DL 10/19/2024 11:30 AM [facility] HDL 52 >40.0 MG/DL 10/19/2024 11:30 AM [facility] LDL (CALCULATED) 59 <100 MG/DL 10/19/19 11:30 AM [facility] NON HDL CHOLESTEROL 66 <130 MG/DL 10/19 11:30 AM [facility] Comment: NOTE: WHEN THE TRIGLYCERIDES ARE >200 mg/dL, NON HDL C IS A SECONDARY TARGET OF THERAPY, WITH A GOAL 30 mg/dL HIGHER THAN THE IDENTIFIED LDL C GOAL. CHOL/HDL RATIO 2.3 0.0 - 4.5 10/19/2024 11:30 AM [facility] VLDL CALCULATION 7 5 - 55 MG/DL 10/19/2024 11:30 AM [facility] LIPID INTERPRETATION 10/19/2024 11:30 AM [facility] Comment: NIH CONCENSUS REPORT RECOMMENDATIONS: ADULT CHILD LOW RISK: CHOLESTEROL <200 <170 TRIGLYCERIDE <150 --- HDL >=60 --- LDL <100 <110 BORDERLINE: CHOLESTEROL 200-239 170-199 TRIGLYCERIDE 150-199 --- HDL 40-59 --- LDL 100-159 110-129 HIGH RISK: CHOLESTEROL >=240 >=200 TRIGLYCERIDE >=200 --- HDL <40 --- LDL >=160 >=130 10/19/2024 9:40 AM BLENDING COORDINATOR Millicent Rubio [facility] Final Re sult [facility] [address] [place] [address], [place] [phone] * OUTSIDE LAB (SCAN ORDER) (10/19/2024) 10/19/2024 us [facility] Scanned SCANNING Final Resu lt * PAP SMEAR (SCAN ORDER) (10/05/2024) 10/05/2024 us [facility] Scanned SCANNING Final Resu lt * US PELVIC NON OB COMP TA+TV (09/24/2024 1:30 PM BLENDING COORDINATOR) Anatomical Region Laterality Modality Pelvis Ultrasound 09/24/2024 1:41 PM BLENDING COORDINATOR Impressions 09/24/2024 1:48 PM BLENDING COORDINATOR IMPRESSION: 1. Nonvisualized ovaries. 2. Fluid in the uterine cavity and cervical canal. This would not be typical in a patient of this age. Recommend gynecology referral for additional endometrial evaluation as it is not seen well enough to comment on today. Referred By: MILLICENT RUBIO Interpreted By: Bishop Pope MD, 09/24/2024 1:41 PM Narrative 09/24/2024 1:48 [place] [address] EXAM: US PELVIC NON OB COMP TA+TV [...] Procedure Note Bishop Pope MD - 09/24/2024 [facility] [place] [address] [place] [address] EXAM: US PELVIC NON OB COMP TA+TV [...] enough to commenton today. Referred By: MILLICENT RUBOI Interpreted By: Bishop Pope MD, 09/24/2024 1:41 PM us Millicent Rubio HIGHWAY CONSTRUCTION INSPECTOR-BC ULTRASOUND Final Re sult * (ABNORMAL) URINE BACTERIA CULTURE (09/24/2024 11:42 AM BLENDING COORDINATOR) Only the most recent of2 resultswithin the time period is included. SPEC DESCRIPTION URINE CLEAN CATCH 09/24/2024 4:00 PM BLENDING COORDINATOR [facility] SPECIAL REQUESTS NO SPECIAL REQUEST 09/24/2024 4:00 PM BLENDING COORDINATOR [facility] CULTURE RESULT 50,000-100,000 COL/ML STREPTOCOCCI, BETA HEMOLYTIC GROUP A SUSCEPTIBILTY NOT ROUTINELY PERFORMED. SAVING ISOLATE FOR 5 DAYS. CONTACT MICROBIOLOGY DEPARTMENT IF FURTHER WORKUP IS INDICATED. (A) 09/26/2024 11:32 AM BLENDING COORDINATOR [facility] URINE SPECIMEN OBTAINED BY CLEAN CATCH PROCEDURE / Unknown 09/24/2024 11:42 AM BLENDING COORDINATOR 09/24/2024 4:04 PM BLENDING COORDINATOR us Millicent Méndez Mindi HIGHWAY CONSTRUCTION INSPECTOR-BC MICROBIOLOGY - GENERAL O RDERABLES Final Result [facility] [address] [place] [address], [place] [phone] [facility] (B) [facility] [address] [place] [address], [place] [phone] * (ABNORMAL) URINALYSIS AUTO DIP (09/24/2024) Only the most recent of2 resultswithin the time period is included. COLOR (U) YELLOW YELLOW [facility] (9401), [place] TRANSPARENCY CLEAR CLEAR [facility] (9401), [place] GLUCOSE (U) NEGATIVE NEGATIVE MG/DL [facility] (9401), [place] BILIRUBIN (U) NEGATIVE NEGATIVE [facility] (9401), [place] KETONES MG/DL (U) NEGATIVE NEGATIVE MG/DL [facility] (9401), [place] SPECIFIC GRAVITY (U) 1.010 1.001 - 1.035 [facility] (9401), [place] BLOOD (U) SMALL (1+, Hemolyzed)(A ) NEGATIVE [facility] (9401), [place] U PH 6.0 5.0 - 9.0 [facility] (9401), [place] PROTEIN (U) NEGATIVE NEGATIVE mg/dL [facility] (9401), [place] UROBILINOGEN 0.2 0.2 - 1.0 EU/dL = mg/dL [facility] (9401), [place] NITRITES NEGATIVE NEGATIVE MG/DL [facility] (9401), [place] LEUKOCYTES (U) 1+ (SMALL)(A) NEGATIVE [facility] (9401), [place] URINE SPECIMEN OBTAINED BY CLEAN CATCH PROCEDURE / Unknown 09/24/2024 Millicent Rubio HIGHWAY CONSTRUCTION INSPECTOR-BC URINE ORDERABLES Final R esult [facility] ([id number]), [place] [address] [address], * MG SCREENING W KEE YAZMIN DIGI (08/06/2024 11:47 AM BLENDING COORDINATOR) Anatomical Region Laterality Modality Breast Bilateral Mammography 08/06/2024 1:12 PM BLENDING COORDINATOR Impressions 08/06/2024 1:24 PM BLENDING COORDINATOR IMPRESSION: No suspicious mammographic findings. Recommendation: 1. Routine Screening, Bilateral Assessment: ACR BI-RADS 1 - NEGATIVE Ordered By: MILLICENT RUBIO Interpreted By: Facundo Mcdermott MD, 08/06/2024 1:12 PM Narrative 08/06/2024 1:24 PM BLENDING COORDINATOR [address] [address] Examination: Screening bilateral mammogram Exam Date: 08/06/2024 [...] significant change from the prior exam. Millicent Rubio HIGHWAY CONSTRUCTION INSPECTOR-BC MAMMO Final Re sult * BONE DENSITY/DEXA (08/05/2023 8:39 AM BLENDING COORDINATOR) Anatomical Region Laterality Modality Bone Mammography 08/05/2023 8:58 AM BLENDING COORDINATOR Impressions 08/05/2023 9:01 AM BLENDING COORDINATOR IMPRESSION:===== The patient bone mineral density is osteopenic according to the World Health Organization (WHO) criteria. Referred By: MILLICENT RUBIO Interpreted By: Jonathon Dinh MD, 08/05/2023 8:58 AM Narrative 08/05/2023 9:01 AM BLENDING COORDINATOR EXAMINATION: Bone Density Axial EXAM DATE/TIME: 08/05/2023 [...] WorldHealth Organization (WHO) criteria. Referred By: MILLICENT RUBIO Interpreted By: Jonathon Dinh MD, 08/05/2023 8:58 AM Millicent Rubio [facility] DEXA Final Re sult * HEPATITIS C ANTIBODY (02/28/2023 12:00 AM CDT) 02/28/2023 Millicent Rubio [facility] Final Re sult [facility] * (ABNORMAL) COLOGUARD ([employer]) (06/13/2021 9:30 PM CDT) COLOGUARD RESULT Positive( A) Negative [employer] (CLIA #:[id number]) Comment: POSITIVE TEST RESULT. A positive Cologuard [...] screened with both Cologuard and colonoscopy. ([place]eva Zeng. et al, N Engl J Med 2014;370(14):8577-8888.) Cologuard may produce a false negative or false positive result (no colorectal cancer or precancerous polyp present at colonoscopy follow up). A negative Cologuard test result does not guarantee the absence of CRC or advanced adenoma (pre-cancer). The current Cologuard screening interval is every 3 years. ([place] [employer] Society and U.S. Multi-Society Task Force). Cologuard performance data in a 10,000 patient pivotal study using colonoscopy as the reference method can be accessed at the following location: www.[employer]/results. Additional description of the Cologuard test process, warnings and precautions can be found at www.cologuard.com. Stool specimen (specimen) STOOL SPECIMEN / Unknown 06/13/2021 9:30 PM CDT 06/15/2021 9:32 PM CDT us Millicent Rubio HIGHWAY CONSTRUCTION INSPECTOR-BC BODY FLUIDS AND STOOLS O RDERABLES Final Result [facility]) [address] [place] [address], [facility] (CLIA #:[id number]) [address] [address] from Last 3 Months or Most Recently Relevant to Health Maintenance Insurance [place] [place] [id number] GENERIC - COMMERCIAL Care Teams Computer Systems Integrator Relationship Specialty Start Date End Date Millicent Rubio, HIGHWAY CONSTRUCTION INSPECTOR- [address] [facility], [address] [place] [address] PCP - General NURSE PRACTITIONER 04/14/19
--- NOTE | 2024-11-06 07:22 | WPDHPUPDATE1 ---
History and Physical Update Update Date/Time: 11/06/24 07:22 History and Physical has been reviewed, including an updated exam of the patient. There are NO changes in the patient's condition. Risks, benefits, and alternatives have been discussed and questions answered. Patient agrees to proceed with procedure.
[2024-11-06 10:02] VITALS: BMI 26.8
[2024-11-06 10:10] VITALS: BP 173/79; PULSE 66; RESP 16; TEMP 36.5; O2SAT 99
[2024-11-06] MEDS: LACTATED RINGERS 1,000 ML 30 ML IV CONT (10:30)
[2024-11-06] MEDS: ACETAMINOPHEN 500 MG TABLET 1000 MG PO (10:33)
--- NOTE | 2024-11-06 11:20 | P.PNAN_ITS ---
Anes - Initial Pre Proc Eval Procedure: Operation Date: 11/06/24 12:15 Proposed Procedures p Hysteroscopy Dilation and Curettage - Jonathon Ratliff MD Date/Time: 11/06/24 11:20 Surgeon: Jonathon Ratliff MD Pre Op Diagnosis: post menopausal bleeding Patient Data Age: 69 Gender: F Height: 1.63 m Weight: 70.8 kg Last Vital Signs Temp 36.5 C 11/06/24 10:10 Pulse 66 11/06/24 10:10 Resp 16 11/06/24 10:10 BP 173/79 H 11/06/24 10:10 Pulse Ox 99 11/06/24 10:10 O2 Del Method Room Air 11/06/24 10:10 Allergies Allergy/AdvReac Type Severity Reaction Status Date / Time Sulfa (Sulfonamide AdvReac ITCHING Verified 11/06/24 10:36 Antibiotics) Home Medications ?Medication ?Instructions ?Recorded ?Confirmed ?Type atorvastatin 20 mg tablet 20 mg PO HS 10/15/24 11/06/24 History calcium carb-ergocalciferol (vit 1 tablet PO DAILY 10/15/24 11/06/24 History D2) 600 mg calcium-200 unit tablet cholecalciferol (vitamin D3) 50 50 mcg PO DAILY 10/15/24 11/06/24 History mcg (2,000 unit) capsule levothyroxine 50 mcg tablet 50 mcg PO QAM 10/15/24 11/06/24 History lisinopril 30 mg tablet 30 mg PO QAM 10/15/24 11/06/24 History meloxicam 15 mg tablet 15 mg PO QAM 10/15/24 10/15/24 History multivitamin (Daily Multi-Vitamin 1 tablet PO DAILY 10/15/24 11/06/24 History tablet) omega-3 fatty acids-fish oil 360 1 cap PO DAILY 10/15/24 11/06/24 History mg-1,200 mg capsule vitamin A-vitamin C-vit E-min 1 tablet PO DAILY 10/15/24 11/06/24 History tablet (Ocutabs tablet) hydrocodone 5 mg-acetaminophen 325 1 tablet PO Q4H PRN pain #14 tabs 11/06/24 Rx mg tablet Patient hx anesthesia problems: none Family hx anesthesia problems: none Results Review: All pre-operative results and documents have been reviewed as part of the pre- operative evaluation. [facility] Social History Social History Smoking status: Never smoker Alcohol intake: current Drinks per week: 1 Living arrangements: with family Additional living arrangements comments: [facility] Spiritual care concerns: No Anes - Eval Final PreProcedure Day of Procedure 11/06/24 11:20 Patient weight: overweight Heart: regular rate and rhythm Lungs: clear to auscultation and normal air movement Airway: Mallampati scale class II Neurological: alert and oriented Last oral intake: >/= 8 hours ASA classification: III Emergent: no Anesthetic plan: proceed Anesthesia type and monitoring: general GIVS and standard monitoring Results Review: All pre-operative results and documents have been reviewed as part of the pre- operative evaluation. Informed Consent: The patient's anesthetic plan and its attendant risks and benefits were discussed with the patient/family/POA. Questions were solicited and answers provided to the satisfaction of the patient/family/POA.
[2024-11-06] MEDS: LIDOCAINE 1% LOCAL INJ 10 ML VIAL INFILTRATE (11:40)
--- NOTE | 2024-11-06 12:06 | W.PM.PROC2 ---
Procedure Note - Detailed Date of Procedure 11/06/24 Pre-op Diagnosis post menopausal bleeding Post-op Diagnosis Same Procedure Performed Exam under anesthesia an aborted attempt at hysteroscopy D&C Surgeon Jonathon Ratliff MD Anesthesia MAC Indications this is a 69-year-old female with thickened endometrium on ultrasound Findings I was unable to traverse the cervical os. There was scar tissue present that appeared to be covering anything that appeared cervical. Description of Procedure Patient was prepped draped in normal sterile fashion placed in dorsal lithotomy position. Under excellent IV sedation weighted speculum placed in posterior fornix of the vagina. Multiple attempts were taken to find the cervical os however there was scar tissue present and no definitive cervical os could be found. After multiple tries of the prodding was unable to find the os and so on exam under anesthesia was present the uterus was not enlarged but could not the cervical os could not be found the procedure was terminated the patient was awakened went recovery in satisfactory condition all sponge, needle, instrument counts were correct Estimated Blood Loss 1 Drains No Packing No Pathology None sent Complications No immediate complications Condition Stable Disposition PACU
[2024-11-06 12:08] VITALS: BP 93/50; PULSE 56; RESP 15; O2SAT 100
[2024-11-06 12:35] VITALS: BP 105/67; PULSE 59; RESP 16; O2SAT 100
[2024-11-06 13:05] VITALS: BP 154/66; PULSE 46; RESP 16
== END 2024-11-06 13:15 | disposition home or self-care (01) ==
PROVIDERS: Visit Provider Obstetrics & Gynecology
PROC: 0U5B8ZZ Destruction of Endometrium, Via Natural or Artificial Opening Endoscopic (ICD-10-PCS; CPT 58563; principal; 2024-11-06 12:15)
DX: R93.89 Abnormal findings on diagnostic imaging of other specified body structures (principal); Z79.891 Long term (current) use of opiate analgesic
CPT/HCPCS: 58558; A9270; J2003; J2250; J2704; J3010; J7120